=== PATIENT | female | born 1960 | race Caucasian/White ===

== ENCOUNTER 2023-08-27 13:27 | Outpatient (CLI) | payer BC, SELFPAY | END 2023-08-27 13:28 | disposition home or self-care (01) | LOC: NFLDREF 08-28 08:34 | PROVIDERS: Visit Provider Physician Assistant | DX: R30.0 Dysuria (principal); N39.0 Urinary tract infection, site not specified | CPT/HCPCS: 87086; 87186 ==

== ENCOUNTER 2023-09-09 14:00 | Outpatient (CLI) | payer BC, SELFPAY | END 2023-09-09 14:01 | disposition home or self-care (01) | LOC: NFLDUCREF 14:01 | PROVIDERS: Visit Provider Physician Assistant | DX: N39.0 Urinary tract infection, site not specified (principal); R35.89 Other polyuria | CPT/HCPCS: 87086 ==